=== PATIENT | female | born 1975 | race African-American/Black ===

== ENCOUNTER → 2016-12-25 | Outpatient (CLI) | payer OTHER ==
[~2016-12-25] MED LIST: ALLEGRA180 MG PO; CYCLOBENZAPRINE5 MG PO; DIPHEN25 M1 PO; FLONASE 0.05%50 MCG NASAL; GAVILAX17 GM PO; IMITREX 50 MG T50 MG PO; KEFLEX250 MG; SLOW-MAG64 MG; TOPAMAX50 MG; VISTARIL 25 MG25 M1 PO
== END ==
LOC: PUL 08:01
DX: J45.909 Unspecified asthma, uncomplicated (principal)